=== PATIENT | male | born 2000 | race Caucasian/White ===

== ENCOUNTER 2022-11-09 11:43 | Emergency (ER) | payer OTHER ==
[2022-11-09 11:48] VITALS: BP 151/82; TEMP 99.2; BMI 27.2
[2022-11-09] MEDS ORDERED: ONDANSETRON 4 MG/2 ML VIAL IVPUSH ONE (11:55)
[2022-11-09] MEDS ORDERED: FAMOTIDINE 20 MG/50 ML IVPB 20 MG/50 ML MG IVPB ONE ×2 (11:55→12:10)
[2022-11-09] MEDS ORDERED: SODIUM CHLORIDE 0.9% 1000 ML INFUS.BAG IV ONE (11:56)
[2022-11-09] MEDS ORDERED: ONDANSETRON 4 MG/2 ML VIAL ONE (12:10)
[2022-11-09 12:31] LABS: ALBUMIN 4.6 g/dl (3.4-5.0); BILIRUBIN,TOTAL 1.2 mg/dl (0.2-1); CALCIUM 9.1 mg/dl (8.5-10); TOT PROT 7.4 g/dl (6.4-8.2)
[2022-11-09 12:33] LABS: HEMATOCRIT 46.9 % (35.4-49); HEMOGLOBIN 16.4 G/dL (11.7-16.9); MCH 31.6 pg (25.7-33.7); MEAN CELL VOLUME 90.3 fl (80-96); MEAN PLT VOLUME 7.7 fl (7.5-11.1); RBC 5.19 10^6/uL (4.00-5.60); RDW 13.5 % (11.9-15.9); WHITE BLOOD COUNT 12.3 10^3/uL (4.0-10.8)
[2022-11-09 14:29] VITALS: PULSE 98; RESP 18
== END 2022-11-09 14:29 | disposition home or self-care (01) ==
LOC: FER 11:43
PROC: 3E033GC Introduction of Other Therapeutic Substance into Peripheral Vein, Percutaneous Approach (ICD-10-PCS; principal; 2022-11-09)
DX: K52.9 Noninfective gastroenteritis and colitis, unspecified (principal)
CPT/HCPCS: 0241U-QW; 36415; 80053; 85027; 96365; 96375; 99284-25

== ENCOUNTER 2024-02-14 19:21 | Emergency (ER) | payer OTHER ==
[2024-02-14 19:43] VITALS: BP 139/86; PULSE 88; RESP 16; TEMP 98; BMI 27.8
== END 2024-02-14 20:44 | disposition home or self-care (01) ==
LOC: FER 19:21
DX: M77.8 Other enthesopathies, not elsewhere classified (principal); M25.531 Pain in right wrist; X50.0XXA Overexertion from strenuous movement or load, initial encounter; Y99.0 Civilian activity done for income or pay
CPT/HCPCS: 73110-TC-RT-FY; 99283-25